=== PATIENT | male | born 1940 | race Two or more races ===

== ENCOUNTER 2024-02-08 15:37 | Outpatient (REF) | payer MEDICARE, SELFPAY ==
[2024-02-08 18:02] LABS: Vitamin B12 346 pg/mL (200-900)
== END 2024-02-08 15:38 | disposition home or self-care (01) ==
LOC: HO.LAB 15:37
PROVIDERS: PCP Internal Medicine; Visit Provider Psychiatry & Neurology Neurology
DX: G30.9 Alzheimer's disease, unspecified (principal)
CPT/HCPCS: 36415; 82607

== ENCOUNTER 2025-02-11 14:40 | Outpatient (AMB) | payer MEDICARE, SELFPAY ==
--- NOTE | 2025-02-11 14:43 | A.OFFVIS_ITS ---
Intake Visit Reasons: 6M AD Manager Of Regulatory Affairs Required: Yes Manager Of Regulatory Affairs Services: Manager Of Regulatory Affairs Offered & Declined (daughter to translate) Accompanied by: Daughter Allergies No Known Allergies Allergy (Verified 02/11/25 14:45) Medication List - Last Reconciled 02/11/25 by Sammi Sales CNP acetaminophen 500 mg PO Q6H PRN amlodipine 2.5 mg PO DAILY enalapril maleate 5 mg PO DAILY glipizide 5 mg PO BID memantine 10 mg PO DAILY metoprolol succinate ER 25 mg PO DAILY quetiapine 50 mg PO BEDTIME rivaroxaban (Xarelto) 20 mg PO QPM sennosides (senna) 8.6 mg PO DAILY simvastatin 10 mg PO BEDTIME thiamine HCl (vitamin B1) 100 mg PO DAILY HPI Comments Details: 84-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 He was diagnosed by Dr. Talbert around 2015. He was living with his daughter. He was doing okay. He was a bit more forgetful. Mood was okay, but he was more anxious at times. He sometimes heard things that weren't there. No agitation. He was taking quetiapine once a day at bedtime. Sleep was okay. He was going to day program during the week which he enjoyed. He liked to play pool and dominos. Review of Systems Const Denies chills, Denies daytime sleepiness, Denies difficulty sleeping, Denies fatigue, Denies fever(s), Denies frequent falls, Denies headache(s), Denies increased appetite, Denies poor appetite, Denies snoring, Denies weakness, Denies weight gain and Denies weight loss Eyes Denies loss of vision ENT Denies vertigo, Denies dizziness and Denies headache(s) Card Denies chest pain at rest, Denies chest pain with activity, Denies syncope, Denies leg edema and Denies palpitations Resp Denies snoring GI Denies constipation, Denies heartburn, Denies diarrhea and Denies nausea Denies urinary frequency, Denies urinary incontinence and Denies urinary urgency Musc Denies abnormal gait, Denies numbness and Denies tingling Skin/Breast Denies dry skin and Denies rash Neuro Denies abnormal gait, Denies vertigo, Denies dizziness, Denies syncope, Denies frequent falls, Denies headache(s), Denies lack of coordination, Denies loss of vision, Reports memory loss, Denies numbness, Denies restless legs, Denies seizure-like activity, Denies tingling, Denies paresthesias, Denies tremor(s) and Denies weakness Psych Denies anxiety, Denies depression, Denies auditory hallucinations, Reports memory loss, Denies visual hallucinations and Denies suicidal ideation Endo Denies fatigue and Denies palpitations Physical Exam Const Other: General Appearance:? normal, in no acute distress. Skin:? no rashes, no significant birthmarks. Heart:? S1, S2 normal, no murmurs. Lungs:? clear anteriorly and posteriorly. Extremities:? no edema. Psych:? alert, cooperative with exam. Neuro Other: Mental Status:?Normal attention and affect.?He was able to tell me his age and t hat he was here with his daughter. He could not tell me his birthday. Cranial Nerves:?Pupils are equal, round and reactive to light. External occular muscles are intact. Visual jain are full. Face is symmetrical. Facial sensations are normal. Tongue is midline. Palate elevates symmetrically. Shoulder shrugging is normal. Hearing to bedside conversation is normal. Motor Examination:?DTRs absent. Sensory Exam:?....? Coordination:?No ataxia,?no titubation.? Gait Exam: Within normal limits. Cerebellar Signs:?[id number] is okay. Extrapyramidal System:?No tremor, rigidity with normal facial expressions.? Pronator Drift:?Not present.? Involuntary Movements:?No tremors seen.? Speech:?Normal.? Assessment & Plan Assessment & Plan (1) Alzheimer dementia: Code(s): G30.9 - Alzheimer's disease, unspecified; F02.80 - Dementia in other diseases classified elsewhere, unspecified severity, without behavioral disturbance, psychotic disturbance, mood disturbance, and anxiety Category: Medical Qualifiers: Alzheimer's disease onset: unspecified onset Dementia severity: unspecified severity Dementia behavioral or psychological symptom: unspecified whether behavioral, psychotic, or mood disturbance or anxiety Qualified Code(s): G30.9 - Alzheimer's disease, unspecified; F02.80 - Dementia in other diseases classified elsewhere, unspecified severity, without behavioral disturbance, psychotic disturbance, mood disturbance, and anxiety Plan: Increase memantine 10mg 1 tablet twice a day. Continue quetiapine 50mg 1 tablet at bedtime. Medications: New quetiapine 50 mg PO BEDTIME 90 tabs 1RF 90 days memantine 10 mg PO BID 180 tabs 1RF 90 days Coding Level of Care Code Est Pt Level 4 (11545) Diagnoses Alzheimer's dementia, unspecified dementia severity, unspecified timing of dementia onset, unspecified whether behavioral, psychotic, or mood disturbance or anxiety G30.9; F02.80 Alzheimer's disease onset: unspecified onset Dementia severity: unspecified severity Dementia behavioral or psychological symptom: unspecified whether behavioral, psychotic, or mood disturbance or anxiety
--- OUTSIDE RECORDS SUMMARY | 2025-02-11 20:07 | XMS_ITS | Clinical Summary ---
Author Organization [employer] Address [address] [place] [address] Care Team Providers Care Service Desk Associate Name Role Phone Unavailable Primary Care Provider Unavailabl e Social History Tobacco Use Types Packs/Day Years Used Date Smoking Tobacco: Never Assessed Sex and Gender Information Value Date Recorded Sex Assigned at Male 03/29/2022 10:34 AM EDT Legal Sex Male 10:34 AM EDT Gender Identity Not on file Sexual Orientation Not on file Plan of Treatment Health Maintenance Due Date Last Done Comments Depression Screening 1938 Lipid Panel 1938 Alcohol/Substance Use Screening 1950 Tobacco Screening 1950 DTaP/Tdap/Td Vaccines (1 - Tdap) 1957 Pneumococcal Vaccine: 50+ Ye ars (1 of 1 - PCV) 1988 Zoster Vaccines (1 of 2) 1988 RSV Patients and Pa tients Aged 60 years or older (1 - 1-dose 75+ series) 2013 COVID-19 Vaccine (1 - 2023-2 5 season) 2025 Influenza Vaccine (#1) 2025 HIB Vaccines Aged Out No longer eligi ble based on patient's age to complete this topic HPV Vaccines Aged Out No longer eligi ble based on patient's age to complete this topic Hepatitis A Vaccines Aged Out No long er eligible based on patient's age to complete this topic Hepatitis B Vaccines Aged Out No long er eligible based on patient's age to complete this topic IPV Vaccines Aged Out No longer eligi ble based on patient's age to complete this topic Meningococcal B Vaccine Aged Out No l onger eligible based on patient's age to complete this topic Meningococcal Vaccine Aged Out No osmin libertad eligible based on patient's age to complete this topic RSV under 20 months Aged Out No longe r eligible based on patient's age to complete this topic Rotavirus Vaccines Aged Out No longer eligible based on patient's age to complete this topic
--- OUTSIDE RECORDS SUMMARY | 2025-02-11 20:07 | XMS_ITS | Encounter Summary ---
Author Organization [facility] Address [address] [place] [address] Care Team Providers Care Oncology Rep Name Role Phone Unavailable Primary Care Provider Unavailabl e Encounter Details Date Type Department Care Team (Latest Contact Info) Description 07/28/2018 Abstract [facility] CONVERSIONS Dental, Provider, DDS Social History Tobacco Use Types Packs/Day Years Used Date Smoking Tobacco: Never Assessed Sex and Gender Information Value Date Recorded Sex Assigned at Male 03/29/2022 10:34 AM EDT Legal Sex Male 10:34 AM EDT Gender Identity Not on file Sexual Orientation Not on file documented as of this encounter Plan of Treatment Not on file documented as of this encounter Visit Diagnoses Not on filedocumented in this encounter
--- OUTSIDE RECORDS SUMMARY | 2025-02-11 20:07 | XMS_ITS | Clinical Summary ---
Author Organization [facility] Address [address] [place] [address] Phone Care Team Providers Care Journeyman Pipefitter Name Role Phone Beck Pablo MD Primary Care Provider [phone] Allergies Active Allergy Reactions Criticality Noted Date Comments [id number] Other (see comments) Medications aspirin 81 MG chewable tablet Chew 81 mg 1 (one) time each day Active cyanocobalamin (VITAMIN B-12) 1000 MCG tablet Take 1 tablet by mouth 1 (one) time each day 12/27/2022 Active donepezil (ARICEPT) 10 MG tablet Take 1 tablet by mouth at bed time 05/05/2018 Active enalapril (VASOTEC) 5 MG tablet Take 1 tablet by mouth 1 (one) time each day 05/17/2022 Active ketoconazole (NIZORAL) 2 % shampoo APPLY SMALL AMOUNT TO SCALP TWICE A DAY FOR 8 WEEKS 12/20/2022 Active memantine (NAMENDA) 10 MG tablet Take 1 tablet by mouth 1 (one) time each day 11/11/2022 Active metoprolol succinate XL (TOPROL XL) 25 MG 24 hr tablet Take 1 tablet by mouth 1 (one) time each day 09/02/2020 Active Multiple Vitamins-Minera ls (Centrum Silver 50+Men) tablet Take 1 tablet by mouth 1 (one) time each day Active QUEtiapine (SEROquel) 50 MG tablet Take 1 tablet by mouth in the morning and 1 tablet in the evening. 05/17/2022 Active rivaroxaban (Xarelto) 20 MG tablet Take 1 tablet by mouth 1 (one) time each day 03/31/2020 Active simvastatin (ZOCOR) 20 MG tablet Take 10 mg by mouth 05/17/2022 Active thiamine (VITAMIN B-1) 100 MG tablet Take 1 tablet by mouth 1 (one) time each day 12/09/2022 Active acetaminophen (TYLENOL) 325 MG tablet TAKE 2 TABLETS BY MOUTH EVERY 6 HOURS NEEDED FOR MODERATE PAIN 02/19/2023 Active amLODIPine (NORVASC) 2.5 MG tablet Take 2.5 mg by mouth 1 (one) time each day 01/13/2023 Active amoxicillin-cla vulanate (AUGMENTIN) 875-125 MG per tablet Take 1 tablet by mouth 02/19/2023 Active glipiZIDE (GLUCOTROL) 5 MG tablet TAKE 1 TABLET BY MOUTH 2 TIMES DAILY BEFORE MEALS 02/19/2023 Active indapamide (LOZOL) 1.25 MG tablet Take 1.25 mg by mouth 02/09/2023 Active Active Problems Problem Noted Date Diagnosed Date Atrial fibrillation 05/17/2022 04/04/2023 Generalized anxiety disorder 10/01/201910/2022 Lipoma of skin and subcutaneous tissue of face 0 01/04/2018 04/04/2023 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 04/04/2023 Essential hypertension 11/11/2017 History of malignant neoplasm of prostate 201704/04/2023 Hyperlipidemia 11/11/2017 04/04/2023 Alcohol abuse 09/28/2017 04/04/2023 Unspecified dementia, unspec ified severity, without behavioral disturbance, psychotic disturbance, mood disturbance, and anxiety 09/28/2017 04/04/2023 Overview (04/04/2023): F/u [facility] Neurology Immunizations Immunization Administration Dates Next Due Influenza Split High Dose Pr eservative Free IM 03/05/2020,03/30/2019,03/03/2018 Influenza, Unspecified 04/07/2022 Moderna SARS-COV-2 04/11/2021,10/01/2020, 021 PPD Test 01/26/2018 Pfizer SARS-COV-2 04/13/2022 Pneumococcal Polysaccharide 01/26/2018 Td 01/26/2018 Zoster 03/31/2022,01/28/2022 Social History Tobacco Use Types Packs/Day Years Used Date Smoking Tobacco: Never Smokeless Tobacco: Never Tobacco Cessation:Counseling Given: Not Answered Alcohol Use Standard Drinks/Week Comments Yes 0 (1 standard drink = 0.6 oz pur e alcohol) Sex and Gender Information Value Date Recorded Sex Assigned at Not on file Legal Sex Male 3:50 PM EDT Gender Identity Not on file Sexual Orientation Not on file Last Filed Vital Signs Vital Sign Reading Time Taken Comments Blood Pressure 118/60 04/05/2023 3:02 PM EST Pulse 67 04/05/2023 3:02 PM EST Temperature - - Respiratory Rate - - Oxygen Saturation 98% 04/05/2023 3:02 PM EST Inhaled Oxygen Concentration - - Weight 86.4 kg (190 lb 6.4 oz) 04/05/2023 3:02 P M EST Height 180.3 cm (5' 11 ) 04/05/2023 3:02 PM EST Body Mass Index 26.56 04/05/2023 3:02 PM EST Plan of Treatment Health Maintenance Due Date Last Done Comments Pneumococcal Vaccine: 50+ Years (2 of 2 - PCV) 01/26/2019 01/26/2018 Influenza Vaccine (#1) 2025 3, 04/07/2022, 03/05/2020, Additional history exists Hepatitis B Vaccine Aged Out No longe r eligible based on patient's age to complete this topic Insurance [place] [employer] [facility] ([id number]) [facility] ([id number] Care Teams Journeyman Pipefitter Relationship Specialty Start Date End Date Beck Pablo MD PCP - General Internal Medicine 12/28/22
--- OUTSIDE RECORDS SUMMARY | 2025-02-11 20:07 | XMS_ITS | Clinical Summary ---
Author Organization 175 [facility] Address [address] [place] [address] Phone Care Team Providers Care Labor Gang Supervisor Name Role Phone Beck Pablo MD Primary Care Provider [phone] Allergies Active Allergy Reactions Criticality Noted Date Comments Apixaban Rash 04/30/2024 Other 01/30/2022 Mucinex Fast-Max Cold Other Reaction(s): Rash/Dermatitis Oxymetazoline Palpitations 03/09/2024 Medications amLODIPine (Norvasc) 2.5 mg tablet Take 1 tablet (2.5 mg total) by mouth. 3 Active memantine (NAMENDA) 10 mg tablet Take 1 tablet (10 mg total) by mouth 1 (one) time each day. 0 Active ketoconazole (NIZORAL) 2 % shampoo APPLY SMALL AMOUNT TO SCALP TWICE A DAY FOR 8 WEEKS 3 Active aspirin 81 mg chewable tablet Chew 1 tablet (81 mg total) 1 (one) time each day. Active donepeziL (ARICEPT) 10 mg tablet Take 1 tablet (10 mg total) by mouth at bedtime. 8 Active diaper,brief,adul t,disposable (Depend Real Fit Brief Men S-M) misc 1 Device by Does not apply route 2 times daily. 3 Active medical supply, miscellaneous (MISCELLANEOUS MEDICAL SUPPLY MISC) 1 Device by Does not apply route daily. 3 Active mv-min/folic/K1/l ycopen/lutein (CENTRUM SILVER MEN ORAL) Take 1 Tab by mouth daily. Active QUEtiapine (SEROquel) 50 mg tablet Take 1 Tablet by mouth 2 times daily. 2 Active rivaroxaban (Xarelto) 20 mg tablet Take 1 Tab by mouth daily. 0 Active albuterol HFA (PROAIR HFA ; PROVENTIL HFA ; VENTOLIN HFA) 90 mcg/actuation inhalerIndication s:ILD (interstitial lung disease) (CMS/HCC V24, CMS/HCC V28),Lung nodule,LUCIANA (obstructive sleep apnea) Inhale 2 puffs by mouth every 6 (six) hours if needed for shortness of breath or wheezing. 4 Active indapamide (LOZOL) 1.25 mg tablet Take 1 tablet (1.25 mg total) by mouth 1 (one) time each day in the morning. 4 Active metoprolol succinate (TOPROL-XL) 25 mg 24 hr tablet Take 1 tablet (25 mg total) by mouth 1 (one) time each day. Do not crush or chew. Active oxyCODONE (OXY-IR) 5 mg immediate release capsule Take 1 capsule (5 mg total) by mouth every 6 (six) hours if needed for severe pain for up to 8 doses. Max Daily Amount: 20 mg 8 capsule 4 Active Additional Information Patient not taking.Reported on 12/26/2024 simvastatin (ZOCOR) 20 mg tablet TAKE 1/2 TABLET BY MOUTH AT BEDTIME 45 tablet 1 5 Active senna 8.6 mg tabletIndications :Constipation, unspecified TAKE 1 TABLET BY MOUTH EVERY DAY 90 tablet 1 5 Active glipiZIDE (GLUCOTROL) 5 mg tablet TAKE 1 TABLET BY MOUTH TWICE A DAY BEFORE MEALS 180 tablet 1 5 Active thiamine 100 mg tablet TAKE 1 TABLET BY MOUTH EVERY DAY 90 tablet 1 5 Active acetaminophen (TYLENOL) 500 mg tablet TAKE 1 TABLET BY MOUTH EVERY 6 HOURS NEEDED FOR PAIN FOR UP TO 10 DAYS. 60 tablet 5 5 Active enalapril (VASOTEC) 5 mg tablet TAKE 1 TABLET BY MOUTH 1 TIME EACH DAY. 90 tablet 1 5 Active Active Problems Problem Noted Date Diagnosed Date Ventral hernia without obstruction or gangrene 1 06/23/2023 Atrial fibrillation ([facility] [place], [facility] V28) 1 06/10/2023 Dyslipidemia 03/09/2024 Atherosclerosis 05/18/2023 Overview (03/09/2024): Found on carotid ultrasound 04/2023: No significant stenosis. A-fib ([facility] V24, [facility] V28) 05/17/2022 Generalized anxiety disorder 10/01/2019 Lipoma of face 01/04/2018 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 Essential hypertension 11/11/2017 Hyperlipidemia 11/11/2017 Alcohol abuse 09/28/2017 Dementia ([facility] [place]24, [facility] V28) 09/28/2017 Overview (03/09/2024): F/u [facility] Unspecified dementia, unspec ified severity, without behavioral disturbance, psychotic disturbance, mood disturbance, and anxiety ([facility] V24, [facility] V28) 09/28/2017 Overview (04/10/2024): F/u [facility] Encounters Date Type Department Care Team Description 12/26/2024 9:00 AM EDT Office Visit General Surgery - [address] [place] [address] Werner Venegas, DO S/P repair of ventral hernia (Primary Dx) 12/25/2024 [facility] [address] [place], [place] [address] [address] Beck Pablo MD from Last 3 Months Immunizations Name Administration Dates Next Due Influenza trivalent, 0.5mL ( Fluad) 65yo and older 02/09/2023,03/05/2020,03/30/2019,03/03 Influenza, Unspecified 04/07/2022,04/07/2022 Moderna SARS-CoV-2 COVID-19, mRNA, LNP-S, preservative free 04/11/2021,10/01/2020,09/03/2020 PPD Test 01/26/2018 Pfizer SARS-CoV-2 COVID-19, mRNA, LNP-S, preservative free 04/13/2022 Pneumococcal conjugate 20 va lent (Prevnar 20, PCV 20) 2mo and older 09/05/2024 Pneumococcal polysaccharide 23 valent (Pneumovax 23) 2yo and older 01/26/2018 Td Tetanus diptheria (Tdvax) 7yo and older 01/26/2018 Zoster Live 03/31/2022,01/28/2022 Surgical History Surgery Date Site/Laterality Comments OTHER SURGICAL HISTORY PROCEDURE: WI LASER VAPORIZATION OF PROSTATE FOR URINE FLOW HERNIA REPAIR Medical History Medical History Date Comments Dementia ([facility] [place], [facility] V28) 09/28/2017 DX:Dementia ([facility]) Alcohol abuse 09/28/2017 DX:Alcohol abuse Prostate cancer ([facility] [place]24, [facility] V28) 11/11 DX:Prostate cancer ([facility]) Hyperlipidemia 11/11/2017 DX:Hyperlipidemi a Essential hypertension 11/11/2017 DX:Essent ial hypertension B12 deficiency 11/11/2017 DX:B12 deficienc y History of prostate cancer 11/11/2017 DX:De story of prostate cancer A-fib ([facility] [place]24, [facility] V28) 05/17/2022 DX:A-fib ([facility]) Irregular heart beat Diabetes mellitus ([facility] [place]24, [facility] V28) GERD (gastroesophageal reflux disease) Depression Psychiatric illness Arrhythmia Family History Medical History Relation Name Comments Other: heart dz Brother 1 Other: heart dz Brother 2 Other: heart dz Brother 3 No Known Problems Brother 4 No Known Problems Brother 5 No Known Problems Brother 6 No Known Problems Brother 7 No Known Problems Brother 8 Diabetes Daughter x4 Hypertension Daughter x4 Other: heart dz Father Alzheimer's disease Mother No Known Problems Sister 1 No Known Problems Sister 2 Diabetes Son Relation Name Status Comments Brother 1 Brother 2 Brother 3 Brother 4 Alive Brother 5 Alive Brother 6 Alive Brother 7 Alive Brother 8 Alive Daughter x4 Alive Father Mother Sister 1 Alive Sister 2 Alive Son Alive Social History Tobacco Use Types Packs/Day Years Used Date Smoking Tobacco: Never Smokeless Tobacco: Never Tobacco Cessation:Counseling Given: Not Answered Alcohol Use Standard Drinks/Week Comments Yes 0 (1 standard drink = 0.6 oz pur e alcohol) Sex and Gender Information Value Date Recorded Sex Assigned at Male 05/15/2024 9:17 AM EST Legal Sex Male 11:29 PM EST Gender Identity Male 05/15/2024 9:17 AM EST Sexual Orientation Straight 05/15/2024 9: 17 AM EST Obstetrics History Last Filed Vital Signs Vital Sign Reading Time Taken Comments Blood Pressure 136/88 12/26/2024 9:04 AM EDT Pulse 61 12/26/2024 9:04 AM EDT Temperature 36.2 C (97.1 F) 12/26/2024 9:04 AM EDT Respiratory Rate 16 08/24/2024 9:19 AM EDT Oxygen Saturation 98% 08/24/2024 9:19 AM EDT Inhaled Oxygen Concentration - - Weight 92.5 kg (204 lb) 12/26/2024 9:04 AM EDT Height 180.3 cm (5' 11 ) 12/26/2024 9:04 AM EDT Body Mass Index 28.45 12/26/2024 9:04 AM EDT Plan of Treatment Upcoming Encounters Date Type Department Care Team (Late st Contact Info) Description 03/06/2025 8:15 AM EDT [facility] [address] [phone] Yesika Grewal MD [address] [address] 03/06/2025 8:30 AM EDT Ancillary Procedure [facility] [address] [phone] 03/08/2025 9:15 AM EDT Appointment [facility] CT Scan [address] [place] [id number] Health Maintenance Due Date Last Done Comments Hepatitis A Vaccines (1 of 2 - Risk 2-dose series) 1959 RSV Immunization Adult Patients (1 - 1-dose 75+ series) 2013 Social Influencers of Health Screening 05/02/2022 Zoster Vaccines (2 of 2) 05/26/2022 022, 02/02/2022, 01/28/2022, Additional history exists Medicare Annual Wellness Visit 01/19/2024 01/18/2023 Depression Screening 05/30/2024 Falls Risk Assessment 12/08/2024 12/09/2023 COVID-19 Vaccine ( season) 2025 05/12/2023, 05/06/2022, 04/13/2022, Additional history exists Influenza Vaccine (#1) 2025 , 02/09/2023, 04/07/2022, Additional history exists Hypertension/CHF/CAD Annual BMP Blood Test 09/05/2025 09/05/2024, 06/06/2024, 02/29/2024, Additional history exists DTaP,Tdap,and Td Vaccines (2 - Td or Tdap) 01/27/2028 01/26/2018 Cholesterol Screening (Lipid Panel) 09/05/2029 09/05/2024, 11/15/2023, 11/15/2023 Pneumococcal Vaccine: 50+ Years Completed 09/05/2024, 01/26/2018 HIB Vaccines Aged Out No longer eligi [...] on patient's age to complete this topic MMR Vaccines Aged Out No longer eligi ble based on patient's age to complete this topic Meningococcal ACWY Vaccine Aged Out N o longer eligible based on patient's age to complete this topic Meningococcal B Vaccine Aged Out No l onger eligible based on patient's age to complete this topic RSV Immunization Patients Under 20 months Aged Out No longer eligible based on patient's age to complete this topic Varicella Vaccines Aged Out No longer eligible based on patient's age to complete this topic Medical Devices Implanted Type Area Pediatric Psychiatrist Device Identifier Shelf Expiration Date Model / Serial / Lot Mesh Ventralight St 4.[address] Cir W/Echo Ps Posi Syst - S0 - [id number] Implanted:Qty: 1 on 05/28/2024 by Werner Venegas DO at [facility] Surgical Mesh Sling Implants N/A: Abdomen CR BARD - DAVOL DIV 10/24/2025 [id number] / [id number] / [id number] Procedures Procedure Name Priority Date/Time Associated Diagnosis Comments COMPREHENSIVE METABOLIC PANEL Routine 09/05/2024 3:59 PM EDT Screening for diabetes mellitus LIPID PANEL WITH REFLEX TO DIRECT LDL Routine 09/05/2024 3:59 PM EDT Screening for hyperlipidemia FALLS RISK ASSESSMENT Routine 12/09/2023 from Last 3 Months or Most Recently Relevant to Health Maintenance Results * (ABNORMAL) Lipid panel with reflex to direct LDL (09/05/2024 3:59 PM EDT) Cholesterol 176 0 - 200 mg/dL LAB CHEMISTRY METHOD 09/05/2024 7:23 PM EDT [facility] Triglycerides 260(H) 0 - 150 mg/dL LAB CHEMISTRY METHOD 09/05/2024 7:23 PM EDT [facility] HDL 40 >=40 mg/dL LAB CHEMISTRY METHOD 09/05/2024 7:23 PM EDT [facility] LDL Calculated 84 0 - 100 mg/dL LAB CHEMISTRY METHOD 09/05/2024 7:23 PM T [facility] VLDL Cholesterol Lito 52 mg/dL LAB CHEMISTRY METHOD 09/05/2024 7:23 PM T [facility] Non HDL Chol. (LDL+VLDL) 136 <145 mg/dL LAB CHEMISTRY METHOD 09/05/2024 7:23 PM EDT [facility] Chol/HDL Ratio 4.4 0.0 - 4.4 LAB CHEMISTRY METHOD 09/05/2024 7:23 PM [facility] Blood Venous blood specimen / Unknown Venipuncture / Unknown 09/05/2024 3:59 PM EDT 09/05/2024 3:59 PM EDT us Beck Pablo MD LAB BLOOD ORDERABLES Final Res ult [facility] [address] [place] [address], * (ABNORMAL) Comprehensive metabolic panel (09/05/2024 3:59 PM EDT) Sodium 141 133 - 145 mmol/L LAB CHEMISTRY METHOD [facility] Potassium 5.3 3.5 - 5.5 mmol/L LAB CHEMISTRY METHOD 09/05/2024 7:23 PM [facility] Chloride 106 96 - 110 mmol/L LAB CHEMISTRY METHOD 09/05/2024 7:23 PM [facility] CO2 28 21 - 32 mmol/L LAB CHEMISTRY METHOD 09/05/2024 7:23 PM [facility] Anion Gap 7 3 - 11 LAB CHEMISTRY METHOD 09/05/2024 7:23 PM [facility] Glucose 118(H) 70 - 100 mg/dL LAB CHEMISTRY METHOD 09/05/2024 7:23 PM [facility] BUN 22 5 - 25 mg/dL LAB CHEMISTRY METHOD 09/05/2024 7:23 PM [facility] Creatinine 1.32(H) 0.70 - 1.30 mg/dL LAB CHEMISTRY METHOD 09/05/2024 7:23 PM [facility] eGFR 53(L) >=60 mL/min/1. 73m2 LAB CHEMISTRY METHOD 09/05/2024 7:23 PM [facility] Comment:Calculation based on the Chronic Kidney Disease Epidemiology Collaboration (CKD-EPI) equation refit without adjustment for race. BUN/Creatinine Ratio 16.7 LAB CHEMISTRY METHOD 09/05/2024 7:23 PM [facility] Calcium 9.8 8.5 - 10.5 mg/dL LAB CHEMISTRY METHOD 09/05/2024 7:23 PM [facility] AST (SGOT) 19 10 - 42 unit/L LAB CHEMISTRY METHOD 09/05/2024 7:23 PM EDT [facility] ALT (SGPT) 19 10 - 60 unit/L LAB CHEMISTRY METHOD 09/05/2024 7:23 PM EDT [facility] Alkaline Phosphatase 105 42 - 121 unit/L LAB CHEMISTRY METHOD 09/05/2024 7:23 PM EDT [facility] Total Protein 7.2 6.0 - 8.0 g/dL LAB CHEMISTRY METHOD 09/05/2024 7:23 PM EDT [facility] Albumin 3.7 3.2 - 5.0 g/dL LAB CHEMISTRY METHOD 09/05/2024 7:23 PM [facility] Total Bilirubin 0.3 0.0 - 1.4 mg/dL LAB CHEMISTRY METHOD 09/05/2024 7:23 PM EDT [facility] Blood Venous blood specimen / Unknown Venipuncture / Unknown 09/05/2024 3:59 PM EDT 09/05/2024 3:59 PM EDT Beck Pablo MD LAB BLOOD ORDERABLES Final Res ult [facility] [address] [place] [address], * Falls Risk Assessment (12/09/2023) [facility] Falls Risk Assessment Abstracted Historical Provider HEALTH MAINTENANCE Final Result from Last 3 Months or Most Recently Relevant to Health Maintenance Insurance [employer] Advance Directives Documents on File Type Date Recorded Patient Administrative Assistant Expl anation Advance Directives and Livin g Will 06/06/2024 8:56 AM Power of [place] 05/28/2024 7:12 AM HCP * Full Code - Default (Latest Code Status on File) Date Activated Date Inactivated Comments 05/28/2024 6:34 AM 05/28/2024 1:28 PM This is or dana is used when code status has not been discussed with the patient, or code status is otherwise unknown/unconfirmed To update the patient's code status, place a code status order. Do not modify or discontinue any currently active code status orders. Care Teams Labor Gang Supervisor Relationship Specialty Start Date End Date Beck Pablo MD [address] [place] [id number] PCP - General Internal Medicine 03/29/24
== END 2025-02-11 14:56 | disposition home or self-care (01) ==
LOC: HO.HSM 14:41
PROVIDERS: PCP Internal Medicine; Referring Provider Internal Medicine; Visit Provider Registered Nurse
DX: G30.9 Alzheimer's disease, unspecified (principal); F02.80 Dementia in other diseases classified elsewhere, unspecified severity, without behavioral disturbance, psychotic disturbance, mood disturbance, and anxiety
CPT/HCPCS: 99214

== ENCOUNTER → 2025-02-11 14:40 | Outpatient (BNVA) | payer MEDICARE, SELFPAY | PROVIDERS: PCP Internal Medicine; Referring Provider Internal Medicine; Visit Provider Registered Nurse | DX: G30.9 Alzheimer's disease, unspecified (principal); F02.80 Dementia in other diseases classified elsewhere, unspecified severity, without behavioral disturbance, psychotic disturbance, mood disturbance, and anxiety | CPT/HCPCS: 99212 ==